=== PATIENT | male | born 1955 | race Caucasian/White ===

== ENCOUNTER → 2024-02-15 09:13 | Outpatient (REF) | payer OTHER, MEDICARE, SELFPAY | LOC: RAD 09:13 | PROVIDERS: ATTENDING PHYSICIAN Surgery; FAMILY PHYSICIAN Family Medicine | DX: R15.9 Full incontinence of feces (principal) | CPT/HCPCS: 74018 ==

== ENCOUNTER 2024-02-26 06:16 | Day surgery (SDC) | payer MEDICARE, OTHER, SELFPAY ==
[2024-02-26 11:00] LABS: Glucose - Point of Care 108 mg/dl (70-99)
== END 2024-02-26 12:18 | disposition home or self-care (01) ==
LOC: GI 06:16
PROVIDERS: ATTENDING PHYSICIAN Surgery
DX: Z12.11 Encounter for screening for malignant neoplasm of colon (principal); D12.0 Benign neoplasm of cecum; K57.30 Diverticulosis of large intestine without perforation or abscess without bleeding; D12.8 Benign neoplasm of rectum; Z86.0101 Personal history of adenomatous and serrated colon polyps; Z79.01 Long term (current) use of anticoagulants
CPT/HCPCS: 45385; 88305; 82962

== ENCOUNTER → 2024-07-28 08:52 | Outpatient (REF) | payer MEDICARE, OTHER, SELFPAY | LOC: RAD 08:52 | PROVIDERS: ATTENDING PHYSICIAN Family Medicine | DX: K21.9 Gastro-esophageal reflux disease without esophagitis (principal) | CPT/HCPCS: 74221 ==

== ENCOUNTER → 2024-09-17 15:32 | Outpatient (REF) | payer OTHER, MEDICARE, SELFPAY | LOC: CLAB 15:32 | PROVIDERS: ATTENDING PHYSICIAN Specialist | DX: R97.20 Elevated prostate specific antigen [PSA] (principal) | CPT/HCPCS: 88305 ==

== ENCOUNTER 2024-11-03 06:32 | Day surgery (SDC) | payer OTHER, MEDICARE, SELFPAY | END 2024-11-03 06:33 | disposition home or self-care (01) | LOC: GI 06:32 | PROVIDERS: ATTENDING PHYSICIAN Internal Medicine Gastroenterology; FAMILY PHYSICIAN Family Medicine | DX: K21.9 Gastro-esophageal reflux disease without esophagitis (principal); Z53.09 Procedure and treatment not carried out because of other contraindication; I48.91 Unspecified atrial fibrillation | CPT/HCPCS: 43235; G0378 ==

== ENCOUNTER 2024-11-03 12:29 | Emergency (ER) | payer OTHER, MEDICARE, SELFPAY ==
[2024-11-03] VITALS (9 sets, daily range): BP systolic 112–127; BP diastolic 54–98; BMI 33.8
[2024-11-03] MEDS: CARDIZEM 10 MG IV ×2 (13:14→13:48)
[2024-11-03 13:17] LABS: Hematocrit 45.7 % (39.0-52.0); Hemoglobin 15.4 g/dL (13.0-18.0); Mean Corp Hgb Conc. 33.7 g/dL (33.0-37.0); Mean Corpuscular Volume 79.9 fL (80.0-94.0); Nucleated Red Blood Cells % 0 % (-); Platelet Count 276 10^3/uL (130-400); Red Cell Dist. Width 15.1 % (11.5-14.5)
[2024-11-03] MEDS: CARDIZEM 125 IV (13:20)
[2024-11-03 13:32] LABS: ALT (SGPT) 17 U/L (0-50); AST (SGOT) 19 U/L (17-59); Albumin 4.4 g/dl (3.5-5.0); Alkaline Phosphatase 56 U/L (38-126); Blood Urea Nitrogen 26 mg/dl (9-20); Calcium 9.4 mg/dl (8.4-10.2); Carbon Dioxide 26 mmol/L (22-30); Chloride 103 mmol/L (98-107); Glucose 126 mg/dl (70-99); Magnesium 1.8 mg/dl (1.6-2.3); Potassium 4.3 mmol/L (3.5-5.1); Sodium 138 mmol/L (135-145); Total Protein 7.4 g/dl (6.3-8.2); eGFR > 60.00
--- NOTE | 2024-11-03 13:33 | EDRN ---
Addendum entered by Aletha Jaramillo RN 11/03/24 13:53:
Pt is asymptomatic w/ high heart rate and w/ A Fib
Original Note:
Pt went to GI for endoscopy for acid reflux. Pt was found in A Fib w/ RVR so sent here to ER. Pt has not eaten sine 21:00. Pt has been off Eliquis for 4 days for procedure. Pt has history of A fib w/ ablation 10 years ago. HR at this time 117-145.
--- NOTE | 2024-11-03 13:35 | EDRN ---
Pt last ate/drank 21:00 last night.
--- NOTE | 2024-11-03 14:00 | EDRN ---
Dr. Davis asked about a boxed lunch for pt as he is very hungry. Dr. Davis said okay as he has been off Eliquis by 4 days so cardioversion cannot be done. Pt was administered this boxed lunch at this time.
--- NOTE | 2024-11-03 15:02 | EDRN ---
This RN in to see pt at this time HR 90-100's at this time. This RN just saw stat order for diltiazem [address] Davis, ordered at 14:30. THis RN called Dr. Davis to see if he still wants pt to get 15 mg w/ HR 90-100's. Dr. Davis said he will
be in to check on pt.
--- NOTE | 2024-11-03 15:08 | EDRN ---
Dr. Davis in room w/pt at this time.
[2024-11-03] MEDS: CARDIZEM CD 180 MG PO (15:25)
[2024-11-03] MEDS: ELIQUIS 5 MG PO (15:28)
--- NOTE | 2024-11-03 16:20 | EDRN ---
Pt OOB to BR at this time.
--- NOTE | 2024-11-03 17:01 | ED.GENMED ---
History of Present Illness
General
Chief Complaint: Heart Rate Problem
Source: patient
Exam Limitations: none
Time Seen by Provider: 11/03/24 12:59
History of Present Illness
History of Present Illness:
Note:
CHIEF COMPLAINT(S)
Atrial Fibrillation discovered during endoscopy.
HISTORY OF PRESENT ILLNESS
The patient is a 68-year-old male with known atrial fibrillation (AF) who presented following the discovery of AF during a scheduled endoscopy procedure. The procedure was being performed for monitoring gastroesophageal reflux disease (GERD). The
patient has a longstanding history of atrial fibrillation and is currently being managed with anticoagulation therapy using apixaban. The patient reports being generally asymptomatic during episodes of AF, with no significant symptoms such as
shortness of breath or fatigue. The patient recently had a cardiology evaluation approximately two weeks ago, where an electrocardiogram (ECG) showed normal sinus rhythm. However, during todays incident, the patients heart rate was noted to be
elevated at approximately 140 beats per minute. The patient is under the care of Dr. Alaniz, a preschool teacher at [employer], with a pending evaluation for transcatheter aortic valve replacement (TAVR) as part of the cardiac management plan.
PAST MEDICAL AND SURGICAL HISTORY
Atrial Fibrillation
Gastroesophageal Reflux Disease
CHRONIC MEDICAL CONDITIONS SIGNIFICANTLY AFFECTING CARE
Atrial Fibrillation
Gastroesophageal Reflux Disease
MEDICATIONS
Apixaban (Eliquis) for anticoagulation.
REVIEW OF SYSTEMS
- Cardiovascular: Notably elevated heart rate discovered during endoscopy; patient otherwise asymptomatic with no complaints of dizziness, chest pain, or dyspnea.
- Gastrointestinal: Known gastroesophageal reflux disease, under surveillance with endoscopy.
PHYSICAL EXAM
General: Alert, no acute distress.
Skin: Warm, dry.
Head: Normocephalic, atraumatic.
Neck: Supple, trachea midline.
Eye, Ears, Nose, Mouth, and Throat: Oral mucosa moist.
Cardiovascular: Normal peripheral perfusion, No edema.
Respiratory: Respirations are non-labored.
Gastrointestinal: Abdomen nondistended.
Back: Normal range of motion, Normal alignment.
Musculoskeletal: Normal range of motion, normal strength.
Neurological: Alert and oriented to person, place, time, and situation, No focal neurological deficit observed.
Psychiatric: Cooperative, appropriate mood & affect.
PROBLEM LIST
Acute Problems:
- Atrial Fibrillation with rapid ventricular response discovered during routine endoscopy.
Chronic Problems:
- Atrial Fibrillation
- Gastroesophageal Reflux Disease
PLAN
- The patient is advised to contact their preschool teacher, Dr. Medeiros, to discuss the recent AF episode and review current cardiac management strategies.
- Monitoring and possible adjustment of medications may be needed given the occurrence of AF at a rate of approximately 140 beats per minute.
- Follow-up is recommended after the discussion with the preschool teacher to potentially reassess the strategy for anticoagulation and rate/rhythm control.
DIFFERENTIAL DIAGNOSIS
The Differential Diagnosis includes, in no particular order and is not limited to:
1. Paroxysmal Atrial Fibrillation
2. Chronic Atrial Fibrillation
3. Atrial Flutter
4. Supraventricular Tachycardia
5. Symptomatic Bradycardia
6. Ventricular Tachycardia
7. Thyrotoxicosis-induced Cardiac Arrhythmia
8. Electrolyte Imbalance-induced Arrhythmia
9. Ischemic Heart Disease
10. Heart Failure
EKG
My independent EKG interpretation is:
- Time of EKG: Not mentioned
- Rhythm: Atrial fibrillation with rapid ventricular rate
- Heart rate: 149 beats per minute
- [place]: Normal
- ST segment changes: Non-specific ST&T wave changes
- Abnormalities: No acute ischemic changes
Disposition:
SUMMARY OF ENCOUNTER
The patient, a 68-year-old male with a known history of atrial fibrillation, was seen in the emergency department after atrial fibrillation with rapid ventricular response was discovered during an endoscopy. The patient was asymptomatic and had been
off anticoagulation therapy with apixaban (Eliquis) over the past few days. Despite a rapid heart rate, initial management with IV diltiazem was initiated to achieve rate control, which was successful. Given the patients stability and preference to
avoid hospitalization, the patient was transitioned to an oral formulation of diltiazem for continued rate control.
DISPOSITION
The patient will be discharged to follow up with his outpatient preschool teacher tomorrow.
ASSESSMENT
Atrial fibrillation with rapid ventricular response.
PLAN
- Resume apixaban (Eliquis) as previously prescribed.
- Start oral diltiazem extended-release for ongoing rate control.
- Follow up with outpatient preschool teacher tomorrow.
INDEPENDENT REVIEW OF LABS AND INTERPRETATION OF TESTS
My independent review of CBC indicates a white blood cell count of 13.2 x10^9/L, but normal hemoglobin of 15.4 g/dL. My independent review of chemistry and liver function tests indicates normal results. TSH is normal.
PATIENT EDUCATION AND COUNSELING
The patient was counseled on the importance of resuming apixaban to manage atrial fibrillation and was informed about the new prescription for oral diltiazem extended-release to control heart rate.
FOLLOW-UP INSTRUCTIONS
The patient should follow up with their outpatient preschool teacher tomorrow for further management and evaluation of atrial fibrillation.
MEDICATION RECONCILIATION
- Resume apixaban (Eliquis) as previously prescribed.
- Start diltiazem extended-release at home for rate control.
MEDICAL DECISION MAKING
- Number and Complexity of Problems Addressed: Chronic conditions affecting care include atrial fibrillation. Differential Diagnosis includes paroxysmal atrial fibrillation, chronic atrial fibrillation, atrial flutter, supraventricular tachycardia,
symptomatic bradycardia, ventricular tachycardia, thyrotoxicosis-induced cardiac arrhythmia, electrolyte imbalance-induced arrhythmia, ischemic heart disease, and heart failure.
- Data:
Category 1: Non-emergency department records reviewed, including outpatient cardiology and pharmacy records, indicating a history of atrial fibrillation.
Category 2: My independent interpretation of EKG indicates atrial fibrillation with rapid ventricular rate.
- Risk:
Consideration for admission/observation was made, especially considering the complexity of atrial fibrillation with rapid ventricular response in the setting of medication non-adherence. However, the patient was deemed stable for outpatient
management with close follow-up. Prescription medication, namely diltiazem extended-release, was prescribed.
DIAGNOSIS
- Atrial Fibrillation with Rapid Ventricular Response, ICD-10 I48.91
Past History
Past History
ED Past Medical History: HTN and Other (Parkinson's)
ED Past Surgical History: Orthopedic (Back surgery) and Tonsilectomy
Social History
Tobacco: Non-smoker
Alcohol: Occasional
Drug: None
Personal:
Living: with family
Phy Exam
Physical Exam
Physical Exam:
.
Course
Orders/Labs/Results
Orders:
Orders
11/03/24 12:29
Electrocardiogram (*1) Urgent
Reason for Study: Atrial Fibrillation
EKG- Treatment ONCE
11/03/24 13:06
Complete Blood Count/With Diff Urgent
Comprehensive Metabolic Panel Urgent
Magnesium Urgent
TSH Reflex To Free T4 Urgent
11/03/24 13:08
Diltiazem 125 mg/125 ml Nss [Cardizem] 125 mg in 125 ml IV NOW
Initial dose in mg/hr, then titrate:: 5
Titrate to keep:: Heart rate 80-100 bpm
Titrate by mg/hr:: 5 mg/hr
Frequency of titrations (minutes):: 15
Maximum dose in mg/hr:: 15
Diltiazem HCl [Cardizem] 10 mg IV NOW STA
11/03/24 13:47
Diltiazem HCl [Cardizem] 25 mg .ROUTE .STK-MED ONE
11/03/24 13:49
Diltiazem HCl [Cardizem] 10 mg IV NOW STA
11/03/24 14:31
Diltiazem HCl [Cardizem] 15 mg IV NOW STA
11/03/24 15:12
Apixaban [Eliquis] 5 mg PO NOW STA
Diltiazem Extended Release [Cardizem Cd] 180 mg PO NOW STA
Abnormal Lab Results
11/03/24
13:06
WBC 13.2 H 10^3/uL
(4.8-10.8)
MCV 79.9 L fL
(80.0-94.0)
MCH 26.9 L pg
(27.0-31.0)
RDW 15.1 H %
(11.5-14.5)
Abs Immat Gran (auto) 0.1 H 10^3/uL
(0-0.05)
Absolute Neuts (auto) 9.4 H 10^3/uL
(1.4-6.5)
Absolute Monos (auto) 0.7 H 10^3/uL
(0.1-0.6)
Lymphocytes % 20.0 L %
(20.5-51.1)
BUN 26 H mg/dl
(9-20)
Glucose 126 H mg/dl
(70-99)
11/03/24 13:06
11/03/24 13:06
Vital Signs
Initial and Last Documented VS:
Initial Vital Signs
Temp Pulse Resp BP Pulse Ox
98.0 F 85 20 126/98 98
11/03/24 12:32 11/03/24 12:32 11/03/24 12:32 11/03/24 12:32 11/03/24 12:32
Last Documented Vital Signs
Temp Pulse Resp BP Pulse Ox
98.0 F 105 20 121/91 95
11/03/24 12:32 11/03/24 17:15 11/03/24 17:00 11/03/24 17:00 11/03/24 17:02
*Pulse Oximetry
SaO2: 95
Oxygen Mode of Delivery: Room air
Patient hypoxic: no
*Systems Accountant Interpretation
Rate: tachycardiac
Interpretation: abnormal
Rhythm: a-fib
*Critical Care Note
Total Time (30-74mins, 75-104mins- exclusive of procedures): 35 minutes
ED Attending Note
-
Portions of this chart may have been created with voice recognition software.� Occasional wrong word or��sound alike� substitutions may have occurred due to the inherent limitations of voice recognition software.
Discharge Plan
Departure
Patient Disposition: Home (Routine Discharge)
Date of Disposition: 11/03/24
Time of Disposition: 17:02
Patient with high blood pressure during this ER visit?: No
Discharge Problem:
Atrial fibrillation
Instructions: Atrial Fibrillation (DC)
Prescriptions:
New
diltiazem HCl [Cardizem CD] 180 mg capsule,extended release 24hr
180 mg PO DAILY Qty: 30 0RF
No Action
albuterol sulfate [Ventolin HFA] 1 PUFF HFA aerosol inhaler
2 puff inhalation R Q4HPRN PRN (Reason: sob/wheezing)
rasagiline [Azilect] 1 MG tablet
1 mg PO DAILY
fluticasone furoate [Arnuity Ellipta] 200 MCG blister with device
1 puff inhalation R DAILY
carbidopa-levodopa 25-100 mg Tablet
1 tab PO TID
spironolacton-hydrochlorothiaz 25-25 mg Tablet
1 tab PO DAILY
pantoprazole [Protonix] 40 mg Tablet,Delayed Release (Dr/Ec)
40 mg PO BID
rosuvastatin [Crestor] 5 mg Tablet
5 mg PO QPM
Eliquis 5 mg Tablet
5 mg PO BID
Referrals:
Kareen Graves MD [Family Provider, Family Practice]
Activity Restrictions/Additional Instructions:
Please resume your Eliquis as discussed. Please see your preschool teacher in the next 2 to 3 days for follow-up and reevaluation and further assessment. Return immediately for palpitations, lightheadedness, shortness of breath, weakness of any kind or
any other concerns.
Interventions
Interventions:
*Risk Screen - Suicide Last Done: 11/03/24 13:30
*General Assessment Last Done: 11/03/24 13:30
*Neglect/Abuse Screening Last Done: 11/03/24 13:30
*ED- Fall Risk Assessment Last Done: 11/03/24 13:30
*ED COVID-19 Vaccine History Last Done: 11/03/24 13:30
*Nursing Disposition Last Done: 11/03/24 17:18
ED- Cardiac Assessment Last Done: 11/03/24 13:56
ED- Pulmonary Assessment Last Done: 11/03/24 13:56
Discharge Date and Time
Discharge Date/Time: 11/03/24 17:20
Print Language: FAROESE
== END 2024-11-03 17:20 | disposition home or self-care (01) ==
LOC: EMR 12:29
PROVIDERS: Student in an Organized Health Care Education/Training Program; EMERGENCY PHYSICIAN Emergency Medicine; FAMILY PHYSICIAN Family Medicine
DX: I48.91 Unspecified atrial fibrillation (principal); I10 Essential (primary) hypertension; G20.A1 Parkinson's disease without dyskinesia, without mention of fluctuations; K21.9 Gastro-esophageal reflux disease without esophagitis; Z79.01 Long term (current) use of anticoagulants
CPT/HCPCS: 99284; 96374; 96376 ×2; 80053; 83735; 84443; 85025; 93005

== ENCOUNTER → 2024-11-18 07:22 | Outpatient (REF) | payer OTHER, MEDICARE, SELFPAY | LOC: MRI 3T 07:22 | PROVIDERS: ATTENDING PHYSICIAN Specialist; FAMILY PHYSICIAN Family Medicine | DX: C61 Malignant neoplasm of prostate (principal) | CPT/HCPCS: 72197; A9585 ==